=== PATIENT | female | born 1950 | race Caucasian/White ===

== ENCOUNTER → 2020-09-11 | Outpatient (CLI) | payer OTHER ==
[2020-09-11 12:36] LABS: BASOPHILS ABSOLUTE AUTO 0.06 K/mm3 (0.00-0.23); BASOPHILS PERCENT AUTO 1 % (0-2); EOSINOPHILS PERCENT AUTO 2 % (0-6); Hemoglobin 12.6 g/dL (11.5-16.0); IMMATURE GRAN PERCENT AUTO 0 % (0-1); LYMPHOCYTES ABSOLUTE AUTO 1.92 K/mm3 (0.84-5.20); LYMPHOCYTES PERCENT AUTO 41 % (21-46); MONOCYTES ABSOLUTE AUTO 0.47 K/mm3 (0.16-1.47); MONOCYTES PERCENT AUTO 10 % (4-13); Mean Corpuscular HGB 32.6 pg (26.0-34.0); Mean Corpuscular HGB Conc 34.1 g/dL (31.5-36.5); Mean Corpuscular Volume 96 fL (80-100); Mean Platelet Volume 9.7 fL (9.1-12.4); NEUTROPHILS ABSOLUTE AUTO 2.09 K/mm3 (1.96-9.15); NEUTROPHILS PERCENT AUTO 45 % (41-73); Platelet Count 275 K/mm3 (150-400); RDW Coefficient Variation 12.9 % (11.7-14.2); RDW Standard Deviation 45.2 fL (35.1-46.3); Red Blood Cell Count 3.86 M/mm3 (3.80-5.20); White Blood Cell Count 4.64 K/mm3 (4.00-11.30)
== END | disposition home or self-care (01) ==
LOC: OLS 10:54 → LAB SHORT 10:54
PROVIDERS: Family Medicine
DX: M79.604 Pain in right leg (principal)
CPT/HCPCS: 36415; 85025; 85651; 86140

== ENCOUNTER → 2021-04-14 | Outpatient (CLI) | payer OTHER ==
[2021-04-14 12:57] LABS: BASOPHILS ABSOLUTE AUTO 0.06 K/mm3 (0.00-0.23); BASOPHILS PERCENT AUTO 1 % (0-2); EOSINOPHILS ABSOLUTE AUTO 0.07 K/mm3 (0.00-0.68); EOSINOPHILS PERCENT AUTO 1 % (0-6); Hematocrit 38.8 % (33.0-51.0); Hemoglobin 13.6 g/dL (11.5-16.0); IMMATURE GRAN ABSOLUTE AUTO 0.01 K/mm3 (0.00-0.10); IMMATURE GRAN PERCENT AUTO 0 % (0-1); LYMPHOCYTES ABSOLUTE AUTO 2.35 K/mm3 (0.84-5.20); LYMPHOCYTES PERCENT AUTO 42 % (21-46); MONOCYTES PERCENT AUTO 9 % (4-13); Mean Corpuscular HGB 33.7 pg (26.0-34.0); Mean Corpuscular HGB Conc 35.1 g/dL (31.5-36.5); Mean Corpuscular Volume 96 fL (80-100); Mean Platelet Volume 9.8 fL (9.1-12.4); NEUTROPHILS ABSOLUTE AUTO 2.66 K/mm3 (1.96-9.15); NEUTROPHILS PERCENT AUTO 47 % (41-73); Platelet Count 301 K/mm3 (150-400); RDW Coefficient Variation 13.5 % (11.7-14.2); RDW Standard Deviation 47.7 fL (35.1-46.3); Red Blood Cell Count 4.04 M/mm3 (3.80-5.20); White Blood Cell Count 5.65 K/mm3 (4.00-11.30)
[2021-04-14 13:07] LABS: Alanine Aminotransfer (ALT/SGP 58 U/L (12-78); Albumin, Blood 4.1 g/dL (3.4-5.0); Albumin/Globulin Ratio 1.1 (0.8-1.8); Alk Phos 69 U/L (40-126); Anion Gap 11 mmol/L (6-16); Aspartate Aminotrans (AST/SGOT 37 U/L (12-37); Bilirubin, Total 0.8 mg/dL (0.1-1.0); Blood Urea Nitrogen 21 mg/dL (8-24); Bun/Creatinine Ratio 20.8 (12.0-20.0); CHOL/HDL RATIO 2.1; CO2, Blood 27 mmol/L (21-32); Calcium, Blood 9.3 mg/dL (8.5-10.1); Chloride, Blood 102 mmol/L (98-108); Cholesterol 174 mg/dL (50-200); Creatinine, Blood 1.01 mg/dL (0.40-1.00); Globulin, Blood 3.8 g/dL (2.2-4.0); Glomerular Filtration Rate 54 (60-); Glucose, Blood 85 mg/dL (70-99); HDL Cholesterol 82 mg/dL (>39); Low Density Lipoprotein Chol 85 mg/dL (<110); Potassium, Blood 3.9 mmol/L (3.5-5.5); Sodium, Blood 140 mmol/L (136-145); Total Protein, Blood 7.9 g/dL (6.4-8.2); Triglycerides 36 mg/dL (30-160); Very Low Density Lipoprot Chol 7 mg/dL (6-32)
[2021-04-15 19:10] LABS: ANA DIRECT Negative (Negative); ANTI-DNA (DS) AB QN <1 IU/mL (0-9); RNP ANTIBODIES <0.2 AI (0.0-0.9); SJOGREN'S ANTI-SS-A <0.2 AI (0.0-0.9); SJOGREN'S ANTI-SS-B <0.2 AI (0.0-0.9); SMITH ANTIBODIES <0.2 AI (0.0-0.9)
== END | disposition home or self-care (01) ==
LOC: LAB SHORT 12:52
PROVIDERS: Family Medicine
DX: I10 Essential (primary) hypertension (principal); M79.605 Pain in left leg
CPT/HCPCS: 80053; 80061; 85025; 86225; 86235

== ENCOUNTER 2021-06-13 09:24 | Day surgery (SDC) | payer OTHER ==
[~2021-06-13] VITALS: Ht 170.2 cm; Wt 78.7 kg
[~2021-06-13 09:24] MED LIST: HYDCHL12.5 PO; PSYSENPA PO; VITAMIN D310 MC4 PO
--- NOTE | 2021-06-13 10:48 | NUR ---
06/13/21 1048 Angelique Moreira History, Chart, Medications and Allergies reviewed before start of procedure. Patient confirms NPO status and agrees with scheduled surgery. 3-LEAD EKG REVIEWED WITH PHYSICIAN PRIOR TO START OF PROCEDURE. MONITOR INTACT WITH CONTINUOUS PULSE OXIMETRY AND INTERMITTENT BP. PATIENT DETERMINED TO BE ASA APPROPRIATE FOR PROPOFOL SEDATION PRIOR TO START OF PROCEDURE BY .
--- NOTE | 2021-06-13 11:49 | NUR ---
Patient up to Ambulate independently. Gait steady. Discharge instructions reviewed with patient. Patient verbalizes understanding. Copy given to patient to take home. Patient States Post-Procedure ride home has been arranged. Discharged via wheelchair to private car for ride home.
== END 2021-06-13 11:49 | disposition home or self-care (01) ==
LOC: ORSCMMR 09:24 → ORD 10:30 → ORSCMMR 10:30 → ORSCSDS 10:30 → ORSCMMR 11:49
PROVIDERS: Surgery
PROC: 0DJD8ZZ Inspection of Lower Intestinal Tract, Via Natural or Artificial Opening Endoscopic (ICD-10-PCS; principal; 2021-06-13 10:30)
DX: Z12.11 Encounter for screening for malignant neoplasm of colon (principal); I10 Essential (primary) hypertension; Z79.899 Other long term (current) drug therapy
CPT/HCPCS: J2704; J7120

== ENCOUNTER 2022-12-15 05:52 | Day surgery (SDC) | payer OTHER ==
[2022-12-15] VITALS (21 sets, daily range): BP systolic 63–130; BP diastolic 48–74
[~2022-12-15] VITALS: Ht 172.7 cm; Wt 79.6 kg
[~2022-12-15 05:52] MED LIST changes: +NAPROSYN500 MG PO
--- NOTE | 2022-12-15 06:59 | NUR ---
Ambulatory in Day Surgery History, Chart, Medications and Allergies reviewed before start of procedure.Patient confirms NPO status and agrees with scheduled surgery. Pre-Op teaching done. Pt verbalizes understanding.
--- NOTE | 2022-12-15 10:07 | NUR ---
CONVERSATION WITH DR MILLER ABOUT BLOOD PRESSURE HE HAD ME SWITCH ARMS FOR CUFF AND THERE WAS NO DIFFERENCE PT HAS NO COMPLAINTS A/O PLEASANT BOLUS OF 500 ML IN PROGRESS
--- NOTE | 2022-12-15 10:31 | NUR ---
ARRIVAL PT ARRIVED TO UNIT FROM PACU AT 1015. PT [id number]. ON ROOM AIR SATS 100%. PT DENIES PAIN. ABLE TO WIGGLE TOES AND MOVE LEG. ENDORSES SOME NUMBNESS AROUND WAIST AND THIGH. TANISHA HOSE ON, POLAR KRISTINE IN PLACE. CALL LIGHT PROVIDED. PT DENIES FURTHER NEEDS AT THIS TIME.
--- NOTE | 2022-12-15 17:18 | NUR ---
SHIFT SUMMARY S/P L MARY PT CONTINUES TO ENDORSE SOME NUMBNESS TO LEFT THIGH, SHE WAS ABLE TO SIT AT THE EDGE OF THE BED WITH THERAPY BUT NOT AMBULATE. SHE HAS VOIDED. TOLERATING DIET WELL BUT REMAINS VERY TIRED. PAIN LOCATED IN HER BUTT, NOT THE HIP AT THIS TIME. PLAN WILL BE TO MANAGE PAIN AND ENCOURAGE AMBULATION ONCE ABLE.
[2022-12-16 03:14] VITALS: BP 123/50
[2022-12-16 05:05] LABS: BASOPHILS ABSOLUTE AUTO 0.02 K/mm3 (0.00-0.23); BASOPHILS PERCENT AUTO 0 % (0-2); EOSINOPHILS PERCENT AUTO 0 % (0-6); Hematocrit 29.7 % (33.0-51.0); Hemoglobin 10.8 g/dL (11.5-16.0); IMMATURE GRAN ABSOLUTE AUTO 0.08 K/mm3 (0.00-0.10); IMMATURE GRAN PERCENT AUTO 1 % (0-1); LYMPHOCYTES ABSOLUTE AUTO 0.89 K/mm3 (0.84-5.20); LYMPHOCYTES PERCENT AUTO 9 % (21-46); MONOCYTES ABSOLUTE AUTO 0.78 K/mm3 (0.16-1.47); MONOCYTES PERCENT AUTO 7 % (4-13); Mean Corpuscular HGB 33.5 pg (26.0-34.0); Mean Corpuscular HGB Conc 36.4 g/dL (31.5-36.5); Mean Corpuscular Volume 92 fL (80-100); NEUTROPHILS ABSOLUTE AUTO 8.76 K/mm3 (1.96-9.15); NEUTROPHILS PERCENT AUTO 83 % (41-73); RDW Coefficient Variation 12.5 % (11.7-14.2); RDW Standard Deviation 42.4 fL (35.1-46.3); Red Blood Cell Count 3.22 M/mm3 (3.80-5.20); White Blood Cell Count 10.53 K/mm3 (4.00-11.30)
[2022-12-16 05:16] LABS: Mean Platelet Volume 11.2 fL (9.1-12.4); Platelet Count 140 K/mm3 (150-400)
[2022-12-16 05:28] LABS: Bun/Creatinine Ratio 22.6 (12.0-20.0); Calcium, Blood 8.6 mg/dL (8.5-10.1); Creatinine, Blood 0.66 mg/dL (0.40-1.00); Potassium, Blood 3.7 mmol/L (3.5-5.5)
--- NOTE | 2022-12-16 05:48 | NUR ---
SHIFT SUMMARY A/OX4, 1P ASSIST WITH FWW AND GB. TOLERATING PO INTAKE, ABLE TO AMBULATE TO BATHROOM FOR VOIDS. AQUACEL DRESSING TO L. HIP C/D/I. DENIES PAIN AT THIS TIME. UP TO CHAIR, POLAR KRISTINE IN PLACE. VSS, NO ACUTE CHANGES AT THIS TIME. BED IN LOWEST POSITION WITH CALL LIGHT IN REACH. WILL CONTINUE TO MONITOR AND REPORT TO ONCOMING RN.
[2022-12-16 07:00] VITALS: BP 109/51
[2022-12-16] MEDS ORDERED: Percocet 5-3251 EACH PO (09:13)
[2022-12-16] MEDS ORDERED: ASPI81CH PO (09:13)
[2022-12-16 09:47] VITALS: BP 133/48
[2022-12-16 09:50] VITALS: BP 124/58
--- NOTE | 2022-12-16 09:56 | NUR ---
DISCHARGE PT PROVIDED WITH WRITTEN AND VERBAL DISCHARGE INSTRUCTIONS; PT AND FAMILY REPORTED UNDERSTANDING. PAIN MANAGED AT TIME OF DISCHARGE. BP LOW NORMAL AT TIME OF DISCHARGE, PT DENIES DIZZINESS/LIGHTHEADEDNESS. PT MEETING ALL GOALS. PT ASSISTED OUT IN W/C BY [employer].
== END 2022-12-16 09:57 | disposition home or self-care (01) ==
LOC: ORSCMMR 05:52 → ORD 07:30 → ORSCMMR 07:30 → SURS 10:12 → ORSCMMR 12-16 09:57
PROVIDERS: Orthopaedic Surgery
PROC: 0SRB0JZ Replacement of Left Hip Joint with Synthetic Substitute, Open Approach (ICD-10-PCS; principal; 2022-12-15 07:30)
DX: M16.12 Unilateral primary osteoarthritis, left hip (principal); I10 Essential (primary) hypertension; Z79.899 Other long term (current) drug therapy
CPT/HCPCS: 36415; 72170; 80048; 85025; 97110; 97116; 97162; 97530; A9270; C1713; C1776; J0171; J0690; J0735; J1100; J1885; J2370; J2405; J2704; J2795; J3010; J3370; J7120

== ENCOUNTER 2023-07-20 06:03 | Day surgery (SDC) | payer OTHER ==
[~2023-07-20] VITALS: Ht 167.6 cm; Wt 80.7 kg
[2023-07-20] VITALS (17 sets, daily range): BP systolic 92–146; BP diastolic 47–75
[~2023-07-20 06:03] MED LIST changes: +ALEVE220 MG PO; +ASPI81CH PO; +PSYLLIUM FIBER0.4 GM PO; +Percocet 5-3251 EACH PO
--- NOTE | 2023-07-20 08:23 | NUR ---
Patient up to Ambulate independently. Gait steady. Surgical site prepped with 2% Chlorhexidine cloth wipe. History, Chart, Medications and Allergies reviewed before start of procedure. Lungs clear T/O to Auscultation. Patient confirms NPO status and agrees with scheduled surgery. Pre-Op teaching done. Pt verbalizes understanding. GLASSES TO PACU WITH PT BILLIARD PLAYER BAG.
--- NOTE | 2023-07-20 10:48 | NUR ---
PT ARRIVED TO THE ROOM FROM PACU AT 1010. PT ALERT AND ORIENTED. PT DENIES PAIN. PT HAD SPINAL ANESTHESIA, SHE IS UNABLE TO MOVE OR FEEL BLE AT TIME OF ARRIVAL TO THE ROOM. PT IS ABLE TO MOVE UPPER EXTREMITIES WELL. PT'S S/O AT THE BEDSIDE FOR SUPPORT.
--- NOTE | 2023-07-20 17:51 | NUR ---
SHIFT SUMMARY PT IS POD#0 FROM R MARY WITH DR. MOTT. PAIN MANAGED WITH PO PAIN MEDICATION. PT WORKED WITH THERAPY TODAY. PT BECAME LIGHTHEADED AND NAUSEATED DURING THERAPY, ZOFRAN GIVEN AND VS REMAINED STABLE; SYMPTOMS HAVE NOT RETURNED WITH FURTHER ACTIVITY. PT IS TOELRATING PO.
[2023-07-20] MEDS ORDERED: ASPIR 8181 M1 PO (18:02)
[2023-07-21 00:58] VITALS: BP 124/57
[2023-07-21 05:33] VITALS: BP 101/51
[2023-07-21 06:47] LABS: BASOPHILS ABSOLUTE AUTO 0.01 K/mm3 (0.00-0.23); BASOPHILS PERCENT AUTO 0 % (0-2); EOSINOPHILS PERCENT AUTO 0 % (0-6); Hematocrit 31.3 % (33.0-51.0); Hemoglobin 10.7 g/dL (11.5-16.0); IMMATURE GRAN ABSOLUTE AUTO 0.05 K/mm3 (0.00-0.10); IMMATURE GRAN PERCENT AUTO 1 % (0-1); LYMPHOCYTES ABSOLUTE AUTO 1.14 K/mm3 (0.84-5.20); LYMPHOCYTES PERCENT AUTO 11 % (21-46); MONOCYTES ABSOLUTE AUTO 1.06 K/mm3 (0.16-1.47); MONOCYTES PERCENT AUTO 10 % (4-13); Mean Corpuscular HGB 32.9 pg (26.0-34.0); Mean Corpuscular HGB Conc 34.2 g/dL (31.5-36.5); Mean Corpuscular Volume 96 fL (80-100); Mean Platelet Volume 9.3 fL (9.1-12.4); NEUTROPHILS ABSOLUTE AUTO 8.56 K/mm3 (1.96-9.15); NEUTROPHILS PERCENT AUTO 79 % (41-73); Platelet Count 231 K/mm3 (150-400); RDW Coefficient Variation 13.5 % (11.7-14.2); RDW Standard Deviation 48.2 fL (35.1-46.3); Red Blood Cell Count 3.25 M/mm3 (3.80-5.20); White Blood Cell Count 10.82 K/mm3 (4.00-11.30)
[2023-07-21 07:10] LABS: Bun/Creatinine Ratio 19.7 (12.0-20.0); Creatinine, Blood 0.81 mg/dL (0.40-1.00)
--- NOTE | 2023-07-21 07:36 | NUR ---
POD 1 S/P R MARY. PT VSS T/O NIGHT. DRESSING CDI. PAIN MGD W/5MG OXYCODONE AND SCHEDULED MEDS PRN. PEDAL PULSES ADN CAP REFILL WNL, PT REP SENSATION AT BASELINE. PT ANCA PO, DENIED N/V, IS VOIDING URINE W/O DIFFICULTY. PT AMB IN HALLS W/FWW+SBA, ANCA WELL. PLAN TO DC HOME WHEN CLEARED BY PT.
[2023-07-21 07:57] VITALS: BP 114/66
[2023-07-21] MEDS ORDERED: Percocet 5-3251 EACH PO (09:37)
--- NOTE | 2023-07-21 11:51 | NUR ---
DISCHARGE TOLERATING PO INTAKE, WORKING IN WITH THERAPY, TOLERATES PAIN MEDICATION.ICE PACK PACKED AND BELONGINGS WITH SPOUSE. VSS. LEAVES VIA PRIVATE VEHICLE.
== END 2023-07-21 10:15 | disposition home or self-care (01) ==
LOC: ORSCMMR 06:03 → ORD 07:30 → SURS 10:06 → ORSCMMR 07-21 10:15
PROVIDERS: Orthopaedic Surgery
PROC: 0SR90JZ Replacement of Right Hip Joint with Synthetic Substitute, Open Approach (ICD-10-PCS; principal; 2023-07-20 07:30)
DX: M16.11 Unilateral primary osteoarthritis, right hip (principal); I10 Essential (primary) hypertension
CPT/HCPCS: 36415; 72170; 80048; 85025; 97110; 97116; 97162; A9270; C1776; J0171; J0690; J0735; J1100; J1790; J1885; J2250; J2371; J2405; J2704; J2795; J3010; J3370; J7120